=== PATIENT | male | born 1970 | race Caucasian/White ===

== ENCOUNTER 2018-03-16 06:42 | Inpatient (IN) ==
[2018-03-16] MEDS ORDERED: HYDROmorphone 2 MG/1 ML VIAL IV STA ×2 (07:45→10:38)
[2018-03-16] MEDS ORDERED: ONDANSETRON 4 MG/2 ML VIAL IV STA (07:45)
[2018-03-16] MEDS ORDERED: VANCOMYCIN INJ 1,250 MG in SODIUM CHLORIDE 0.9% 250 ML IV SCH (08:00)
[2018-03-16 08:12] LABS: Basophils # 0.1 10*3/uL (0.0-0.2); Basophils % 0.6 % (0.0-0.8); Eosinophils # 0.2 10*3/uL (0.0-0.87); Eosinophils % 2.2 % (0.00-10.9); Hematocrit 47.3 VOL% (42.0-52.0); Hemoglobin 16.8 GM/DL (14.0-18.0); Immature Granulocytes % 0.5 %; Immature Granulocytes Absolute 0.04 #; Lymphocytes # 1.8 10*3/uL (1.4-4.0); Lymphocytes % 21.5 % (21.2-54.2); Mean Corpuscular HGB Conc 35.5 GM/DL (32-36); Mean Corpuscular Hemoglobin 35 PG (27-34); Mean Corpuscular Volume 97.3 FL (87-102); Mean Platelet Volume 10.6 FL (9.6-12.0); Monocytes # 0.7 10*3/uL (0.11-0.8); Monocytes % 8.4 % (1.7-12.7); Neutrophils # 5.5 10*3/uL (1.4-7.4); Neutrophils % 66.8 % (38.7-73.9); Platelet Count 144 T/CUMM (130-400); Red Blood Count 4.86 MC/CUMM (3.8-5.5); Red Cell Distribution Width 12.7 % (9.3-17.3); White Blood Count 8.2 T/CUMM (4-12)
[2018-03-16 08:23] LABS: INR 1.2; PT Patient Result 12.2 SECS; Partial Thromboplastin Time 30.4 SECS (0-40)
[2018-03-16 08:34] LABS: Albumin 3.9 G/DL (3.4-5.0); Bilirubin,Total 0.5 MG/DL (0.2-1.0); Calcium 9.3 MG/DL (8.5-10.1); Osmolality,Calculated 262.7 MOS/KG (273-304); Potassium 4.5 MMOL/L (3.5-5.1); Total Protein 7.8 G/DL (6.4-8.3)
[2018-03-16 08:38] LABS: Apearance,Urine CLEAR (Clear); Bilirubin,Urine Negative (Negative); Blood, Urine Negative (Negative); Glucose,Urine (UA) Negative (Negative); Ketones,Urine Negative (Negative); Nitrite,Urine Negative (Negative); Protein,Urine Negative; Urine Color Yellow (Yellow); Urine Specific Gravity 1.012 (1.001-1.035); Urine Urobilinogen < 2.0 EU/DL (0.2-1.0); WBC,Urine <1 /HPF (0-6)
[2018-03-16] MEDS ORDERED: SODIUM CHLORIDE 0.9% 1,000 ML IV STA (08:54)
[2018-03-16] MEDS ORDERED: ACETAMINOPHEN 325 MG TABLET PO PRN (11:11)
[2018-03-16] MEDS ORDERED: ONDANSETRON 4 MG/2 ML VIAL IV PRN (11:11)
[2018-03-16] MEDS: SODIUM CHLORIDE 0.9% 1,000 ML IV SCH ×2 (11:27→21:05)
[2018-03-16] MEDS: PANTOPRAZOLE 40 MG TABLET PO SCH (11:28)
[2018-03-16] MEDS: DOCUSATE SODIUM 100 MG CAPSULE PO SCH ×2 (11:37→21:05)
[2018-03-16] MEDS: oxyCODONE/ACETAMINOPHEN 5-325 MG TABLET PO PRN ×2 (15:26→21:04)
[2018-03-16] MEDS ORDERED: MORPHINE 4 MG/1 ML VIAL IV PRN (18:08)
[2018-03-16] MEDS: diphenhydrAMINE CAP 25 MG CAPSULE PO PRN (21:05)
[2018-03-17] MEDS: oxyCODONE/ACETAMINOPHEN 5-325 MG TABLET PO PRN ×4 (03:00→20:59)
[2018-03-17] MEDS: SODIUM CHLORIDE 0.9% 1,000 ML IV SCH ×3 (05:05→22:44)
[2018-03-17 05:13] LABS: Basophils % 0.8 % (0.0-0.8); Eosinophils # 0.2 10*3/uL (0.0-0.87); Eosinophils % 3.5 % (0.00-10.9); Hematocrit 43.4 VOL% (42.0-52.0); Hemoglobin 15.3 GM/DL (14.0-18.0); Immature Granulocytes % 0.8 %; Immature Granulocytes Absolute 0.04 #; Lymphocytes % 37.4 % (21.2-54.2); Mean Corpuscular HGB Conc 35.3 GM/DL (32-36); Mean Corpuscular Hemoglobin 34 PG (27-34); Mean Corpuscular Volume 96.7 FL (87-102); Mean Platelet Volume 11.3 FL (9.6-12.0); Monocytes # 0.4 10*3/uL (0.11-0.8); Monocytes % 6.9 % (1.7-12.7); Neutrophils # 2.6 10*3/uL (1.4-7.4); Neutrophils % 50.6 % (38.7-73.9); Platelet Count 132 T/CUMM (130-400); Red Blood Count 4.49 MC/CUMM (3.8-5.5); Red Cell Distribution Width 12.8 % (9.3-17.3); White Blood Count 5.2 T/CUMM (4-12)
[2018-03-17 05:40] LABS: Calcium 7.9 MG/DL (8.5-10.1); Osmolality,Calculated 272.8 MOS/KG (273-304)
[2018-03-17] MEDS: PANTOPRAZOLE 40 MG TABLET PO SCH ×2 (08:33→08:37)
[2018-03-17] MEDS: LINEZOLID INJ 600 MG in PREMIX 1 EACH IV SCH ×2 (08:33→20:54)
[2018-03-17] MEDS: DOCUSATE SODIUM 100 MG CAPSULE PO SCH ×3 (08:33→20:53)
[2018-03-17] MEDS: LISINOPRIL 20 MG TABLET PO SCH ×3 (08:33→20:52)
[2018-03-17 13:23] LABS: Hepatitis A Ab IgM Quant 0.06 Index; Hepatitis A Ab IgM Result Negative (Negative); Hepatitis B Core IgM Quant 0.11 Index; Hepatitis B Core IgM Result Negative (Negative); Hepatitis B Surface Ag Quant 0.68 Index; Hepatitis B Surface Ag Result Negative (Negative); Hepatitis C Virus Ab Quant 0.09 Index; Hepatitis C Virus Ab Result Negative (Negative)
[2018-03-17] MEDS: diphenhydrAMINE CAP 25 MG CAPSULE PO PRN (20:59)
[2018-03-18] MEDS: SODIUM CHLORIDE 0.9% 1,000 ML IV SCH ×2 (01:10→06:22)
[2018-03-18] MEDS ORDERED: HYDROCORTISONE 2.5% CREAM 30 GM TUBE TOP PRN (01:35)
[2018-03-18] MEDS: SKIN HEALING OINT (AQUAPHOR) 50 GM TUBE TOP PRN ×2 (02:07→13:41)
[2018-03-18] MEDS: LISINOPRIL 20 MG TABLET PO SCH (09:05)
[2018-03-18] MEDS: DOCUSATE SODIUM 100 MG CAPSULE PO SCH (09:06)
[2018-03-18] MEDS: PANTOPRAZOLE 40 MG TABLET PO SCH (09:06)
[2018-03-18] MEDS: LINEZOLID INJ 600 MG in PREMIX 1 EACH IV SCH (09:07)
[2018-03-18 11:33] VITALS: BP 156/88
== END 2018-03-18 14:10 | disposition home or self-care (01) | DRG 603 ==
LOC: N.ED 06:42 → N.EDINP 08:57 → N.2E 12:34
PROVIDERS: ADMIT Internal Medicine; ATTEND Internal Medicine

== ENCOUNTER 2018-08-30 09:58 | Inpatient (IN) ==
[2018-08-30] MEDS ORDERED: ACETAMINOPHEN 325 MG TABLET PO PRN (10:09)
[2018-08-30] MEDS ORDERED: ONDANSETRON 4 MG/2 ML VIAL IV PRN (10:09)
[2018-08-30] MEDS ORDERED: MORPHINE 4 MG/1 ML VIAL IV PRN (10:09)
[2018-08-30] MEDS ORDERED: VANCOMYCIN INJ 1,000 MG in SODIUM CHLORIDE 0.9% 250 ML IV SCH (10:30)
[2018-08-30 12:40] LABS: Basophils % 0.7 % (0.0-0.8); Eosinophils # 0.1 10*3/uL (0.0-0.87); Eosinophils % 1.6 % (0.00-10.9); Hematocrit 47.2 VOL% (42.0-52.0); Hemoglobin 16.6 GM/DL (14.0-18.0); Immature Granulocytes % 0.7 %; Immature Granulocytes Absolute 0.04 #; Lymphocytes # 1.5 10*3/uL (1.4-4.0); Lymphocytes % 26.3 % (21.2-54.2); Mean Corpuscular HGB Conc 35.2 GM/DL (32-36); Mean Corpuscular Hemoglobin 34 PG (27-34); Mean Corpuscular Volume 96.3 FL (87-102); Mean Platelet Volume 10.9 FL (9.6-12.0); Monocytes # 0.5 10*3/uL (0.11-0.8); Monocytes % 9.7 % (1.7-12.7); Neutrophils # 3.4 10*3/uL (1.4-7.4); Platelet Count 122 T/CUMM (130-400); Red Cell Distribution Width 12.7 % (9.3-17.3); White Blood Count 5.6 T/CUMM (4-12)
[2018-08-30 12:58] LABS: Calcium 9.1 MG/DL (8.5-10.1); Osmolality,Calculated 265.4 MOS/KG (273-304); Potassium 4.1 MMOL/L (3.5-5.1)
[2018-08-30] MEDS: ENOXAPARIN 40 MG/0.4 ML SYRINGE SUBCUT SCH (13:23)
[2018-08-30] MEDS: SODIUM CHLORIDE 0.9% 1,000 ML IV SCH ×2 (13:24→22:35)
[2018-08-30] MEDS: GABAPENTIN 100 MG CAPSULE PO SCH ×2 (14:05→20:47)
[2018-08-30] MEDS: LINEZOLID INJ 600 MG in PREMIX 1 EACH IV SCH (14:05)
[2018-08-30] MEDS: LISINOPRIL 20 MG TABLET PO SCH (20:47)
[2018-08-30] MEDS: DOCUSATE SODIUM 100 MG CAPSULE PO SCH (20:47)
[2018-08-30] MEDS: valACYclovir 500 MG TABLET PO SCH (20:49)
[2018-08-31] MEDS: LINEZOLID INJ 600 MG in PREMIX 1 EACH IV SCH ×2 (01:18→12:12)
[2018-08-31 06:00] LABS: Albumin 2.9 G/DL (3.4-5.0); Bilirubin,Total 0.9 MG/DL (0.2-1.0); Calcium 8.1 MG/DL (8.5-10.1); Potassium 3.7 MMOL/L (3.5-5.1); Total Protein 6.7 G/DL (6.4-8.3)
[2018-08-31] MEDS: SODIUM CHLORIDE 0.9% 1,000 ML IV SCH (06:12)
[2018-08-31] MEDS: LISINOPRIL 20 MG TABLET PO SCH ×2 (08:18→20:38)
[2018-08-31] MEDS: valACYclovir 500 MG TABLET PO SCH ×2 (08:19→20:38)
[2018-08-31] MEDS: GABAPENTIN 100 MG CAPSULE PO SCH ×3 (08:23→20:38)
[2018-08-31] MEDS: DOCUSATE SODIUM 100 MG CAPSULE PO SCH ×2 (08:23→20:38)
[2018-08-31] MEDS ORDERED: ASPIRIN EC 81 MG TABLET PO SCH (09:00)
[2018-08-31] MEDS ORDERED: PANTOPRAZOLE 40 MG TABLET PO SCH (09:00)
[2018-08-31] MEDS ORDERED: MELOXICAM 7.5 MG TABLET PO SCH (09:00)
[2018-08-31] MEDS: ENOXAPARIN 40 MG/0.4 ML SYRINGE SUBCUT SCH (10:35)
[2018-09-01] MEDS: LINEZOLID INJ 600 MG in PREMIX 1 EACH IV SCH (00:35)
[2018-09-01 08:15] VITALS: BP 122/69
== END 2018-09-01 09:45 | disposition home or self-care (01) | DRG 603 ==
LOC: N.5E 10:42
PROVIDERS: ADMIT Internal Medicine; ATTEND Internal Medicine